=== PATIENT | male | born 1965 | race Caucasian/White ===

== ENCOUNTER 2017-05-27 19:15 | Emergency (ER) | payer OTHER ==
[~2017-05-27] VITALS: Ht 182.9 cm; Wt 107.2 kg
--- NOTE | ~2017-05-27 | CR72 ---
[facility] A Service of [facility] RADIOLOGY TEXT RESULTS PATIENT: SCAR EVANS LOCATION: [facility] : 63 UNIT #: [id number] AGE: [address]: Trent Guillory DO SEX: M ORDER DR: [id number] [facility] [address] [place], [place] [address] [id number] E MR#: [id number] Acc #: [id number] NAME: SCAR EVANS : 1965 SEX: M STUDY DATE/TIME: 05/27/2017 20:45 UNIT: [facility] ROOM: STUDY DESCRIPTION: CR Chest Single View Portable Attending Physician: Trent Guillory D.O. Ordering Physician: Trent Guillory D.O. Primary Care Physician: Primary Care Physician No MEDICAL IMAGING REPORT This report is preliminary unless electronic signature is present EXAM Portable chest HISTORY Epigastric pain for 2 days. Shortness of air. FINDINGS Mild cardiac enlargement is accentuated by low lung volumes. Pulmonary vascularity is normal. No airspace infiltrates or effusions. Mild right upper thoracic curve. IMPRESSION No acute findings and no active disease. Dictated by... Cisco Hassan M.D. THIS IS AN ELECTRONICALLY VERIFIED REPORT Cisco Hassan M.D. at 05/28/2017 2:23 PM DFL/avtar TD: 05/28/2017 13:15 JOB #: [id number] MEDICAL IMAGING REPORT Page 1 of 1 COPY
--- NOTE | ~2017-05-27 | CT4 ---
[facility] A Service [facility] RADIOLOGY TEXT RESULTS PATIENT: SCAR EVANS LOCATION: [facility] : 63 UNIT #: [id number] AGE: [address]: Trent Guillory DO SEX: M ORDER DR: [id number] [place] [id number] [facility]. [place], [place] [address] [id number] MR#: [id number] Acc #: [id number] NAME: SCAR EVANS : 1965 SEX: M STUDY DATE/TIME: 05/27/2017 22:31 UNIT: [facility] ROOM: STUDY DESCRIPTION: CT Abd and Pelv Wo Cont Attending Physician: Trent Guillory D.O. Ordering Physician: Trent Guillory D.O. Primary Care Physician: Primary Care Physician No MEDICAL IMAGING REPORT This report is preliminary unless electronic signature is present EXAM CT abdomen and pelvis without contrast INDICATIONS Generalized abdominal pain for the past [address] of the abdomen and pelvis. The CT exam was performed with one or more of the following radiation dose reduction techniques: automatic exposure control, adjustment of mA and/or kV according to patient size, and iterative reconstruction. COMPARISON None FINDINGS Abdomen without contrast: Included lung bases are clear. Hepatic steatosis, spleen, kidneys, adrenal gland, are unremarkable. There is mild thickening of the upper left pararenal fascia. This is immediately adjacent to the tail of pancreas. There is no peripancreatic fluid collection. Unremarkable appearance of the gallbladder. Bowel loops are nondilated. Pelvis without contrast. No pelvic mass or fluid. No aggressive appearing bone lesion. IMPRESSION 1. Mild acute pancreatitis involving the tail of pancreas. Correlate with laboratory values. No evidence for peripancreatic fluid [facility] A Service of [facility] RADIOLOGY TEXT RESULTS PATIENT: SCAR EVANS LOCATION: [facility] : 63 UNIT #: [id number] AGE: [address]: Trent Guillory DO SEX: M ORDER DR: 2. Hepatic steatosis. Dictated by... Vamsi Acevedo M.D. THIS IS AN ELECTRONICALLY VERIFIED REPORT Vamsi Acevedo M.D. at 05/28/2017 9:53 PM INDIRA/avtar TD: 05/28/2017 13:19 JOB #: [id number] MEDICAL IMAGING REPORT Page 1 of 1 COPY
--- NOTE | ~2017-05-27 | EKG ---
PATIENT: SCAR EVANS UNIT #: [id number] Ventricular Rate: 83 BPM Atrial Rate: 83 BPM P-R Interval: 134 ms QRS Duration: 70 ms Q-T Interval: 358 ms QTC Calculation(Bezet): 420 ms P [place]: 31 degrees Calculated R [place]: 40 degrees Calculated T [place]: 43 degrees Diagnosis Line: Normal sinus rhythm Diagnosis Line: Normal ECG Diagnosis Line: When compared with ECG of 27-MAY-2017 21:19, Diagnosis Line: (unconfirmed) Diagnosis Line: No significant change was found Diagnosis Line: Confirmed by NEAL BARBOSA MD ([id number]) on Diagnosis Line: 05/28/2017 3:52:39 PM INTERPRETING MD: CHELSEY HAWK
[~2017-05-27 19:15] MED LIST: ASPIRIN EC81 M1 PO; CLOPIDOGREL BIS75 MG PO; GUAIFENESIN LA600 M1 PO; IMDUR-ER30 MG PO; LEVAQUIN750 MG PO; LISINOPRIL10 MG PO; LOPRESSOR PO; NITROGLYCERIN0.4 MG SL; PRAVACHOL20 MG PO; PREDNISONE10 MG/DOSE PO
[2017-05-27 19:59] LABS: BASOPHIL# 0.1 X10e3 (0-0.3); BASOPHIL% 0.6 % (0-2.5); EOSINOPHIL# 0.2 X10e3 (0-0.7); EOSINOPHIL% 1.3 % (0.0-7.0); HEMATOCRIT 47.4 % (38.0-50.0); HEMOGLOBIN 14.9 gm/dL (13.0-16.0); LYMPHOCYTE# 1.9 X10e3 (1.0-3.5); LYMPHOCYTE% 14.2 % (17.0-45.0); MEAN CELL VOLUME 82.1 FL (83-96); MEAN CORPUSCULAR HEMOGLOBIN 25.9 PG (28-34); MEAN CORPUSCULAR HGB CONC 31.5 g/dL (30-36); MEAN PLATELET VOLUME 10.9 FL (6.5-11.5); MONOCYTE# 1.2 X10e3 (0-1.0); MONOCYTE% 8.5 % (3.0-12.0); NEUTROPHIL# 10.3 X10e3 (1.5-7.1); NEUTROPHIL% 75.4 % (40-75); PLATELET COUNT 178 X10e3 (140-420); RED BLOOD COUNT 5.77 X10e (3.90-5.60); RED CELL DISTRIBUTION WIDTH 13.6 % (11.0-15.5); WHITE BLOOD COUNT 13.7 X10e3 (4.0-10.5)
[2017-05-27 20:03] LABS: DIFF IND NO
[2017-05-27 20:19] LABS: ALBUMIN SERUM 3.7 g/dL (3.5-5.0); BILIRUBIN, DIRECT 0.2 mg/dL (0.0-0.2); BILIRUBIN,INDIRECT 0.5 mg/dL (0.0-0.9); BILIRUBIN,TOTAL 0.7 mg/dL (0.2-2.0); BUN/CREATININE RATIO 14.16; CALCIUM SERUM 8.8 mg/dL (8.4-10.2); CREATININE SERUM 1.2 mg/dL (0.6-1.4); GLOM FILT RATE Estimated 69.1 mL/min (>60); POTASSIUM 3.8 mmol/L (3.5-5.1); PROTEIN TOTAL SERUM 7.5 g/dL (6.0-8.3)
[2017-05-27 22:19] LABS: POC - CKMB <1.0 ng/mL (0.0-7.9); POC - TROPONIN <0.05 ng/mL (<=0.05)
[2017-05-27 22:37] LABS: POC - CKMB <1.0 ng/mL (0.0-7.9); POC - TROPONIN <0.05 ng/mL (<=0.05)
[2017-05-28 01:11] LABS: URINE SOURCE CLEAN CATCH
[2017-05-28 01:15] LABS: URINE APPEARANCE CLEAR; URINE BILIRUBIN NEG (NEG); URINE BLOOD NEG (NEG); URINE COLOR DK YELLOW; URINE GLUCOSE 500 MG/DL (NEG); URINE KETONE 1+ (NEG); URINE LEUKOCYTE ESTERASE NEG (NEG); URINE NITRATE NEG (NEG); URINE PROTEIN TRACE (NEG); URINE SPECIFIC GRAVITY 1.036 (1.003-1.035)
[2017-05-28 01:18] LABS: CULTURE INDICATED? NO
== END 2017-05-28 02:30 | disposition home or self-care (01) ==
LOC: CED 19:15
PROVIDERS: Emergency Medicine
DX: K85.90 Acute pancreatitis without necrosis or infection, unspecified (principal); E78.5 Hyperlipidemia, unspecified; I10 Essential (primary) hypertension; Z90.89 Acquired absence of other organs; Z79.82 Long term (current) use of aspirin; Z79.899 Other long term (current) drug therapy
CPT/HCPCS: 36415; 71010; 74176; 80048; 80076; 81003; 82553; 83690; 83880; 84484; 85025; 85379; 93005; 96374; 96375; 99284; J2270; J2405